=== PATIENT | male | born 1965 | race Caucasian/White ===

== ENCOUNTER 2024-05-23 22:37 | Emergency (ER) | payer OTHER ==
--- OUTSIDE RECORDS SUMMARY | 2024-05-23 22:40 | XMS REPORT | Clinical Summary ---
Author Name Unknown Organization [facility] Address [address] [place] [id number] Care Team Providers Care Grid Operator Name Role Phone Unavailable Primary Care Provider Unavailabl e Immunizations Name Administration Dates Next Due Lillie SARS-CoV-2 Vaccination 11/09/2020 Social History Tobacco Use Types Packs/Day Years Used Date Smoking Tobacco: Never Assessed Sex and Gender Information Value Date Recorded Sex Assigned at Not on file Gender Identity Not on file Sexual Orientation Not on file Plan of Treatment Not on file
[2024-05-23] MEDS ORDERED: ALBUTEROL 2.5 MG/3 ML NEB SOL ONE (23:14)
[2024-05-23] MEDS ORDERED: IPRATROPIUM BROM 0.5MG/2.5ML ONE (23:15)
[2024-05-23 23:25] LABS: Absolute Basophils 0.1 K/uL (0-0.5); Absolute Lymphocytes (CBC) 1.2 K/uL (0.7-4.9); Absolute Monocytes 0.9 K/uL (0.1-1.3); Absolute Neutrophil 9.3 K/uL (1.8-8.0); Eosinophils % 0.4 % (0-4.4); Hematocrit 45.7 % (39.6-49.0); Hemoglobin 14.5 g/dL (13.6-17.9); Lymphocytes % 10.6 % (15.3-44.8); MCH 24.5 pg (27.0-35.0); MCHC 31.7 g/dL (32.0-36.0); MCV 77.2 fL (80-100); MPV 9.4 fL (7.6-11.3); Monocytes % 7.7 % (3.3-12.3); Neutrophils % 80.3 % (41.7-73.7); Nucleated Red Blood Cells % 0.2 % (0-0); Platelets 171 thou/uL (152-406); RBC Red Blood Cell Count 5.92 M/uL (4.33-5.43)
[2024-05-23 23:33] LABS: PT Prothrombin Time 14.1 SECONDS (9.4-12.5); Protime INR 1.27
[2024-05-23 23:47] LABS: ALT/SGPT 109 U/L (16-61); AST/SGOT 65 U/L (15-37); Albumin 3.2 g/dL (3.4-5.0); Albumin/Globulin Ratio 0.8 (1.1-1.8); Alkaline Phosphatase 64 U/L (45-117); Anion Gap 9.4 mEq/L (5.0-15.0); BUN Blood Urea Nitrogen 16 mg/dL (7-18); Bicarbonate 26 mEq/L (21-32); Bilirubin Total 0.3 mg/dL (0.2-1.0); Globulin 4.2 g/dL (2.3-3.5); Glomerular Filtration Rate 68 ml/min (=/>90); Glucose Level 136 mg/dL (74-106); Magnesium 1.8 mg/dL (1.6-2.4); NT PRO-BNP 1053 pg/mL (<125); Potassium 4.4 mEq/L (3.5-5.1); Protein, Total 7.4 g/dL (6.4-8.2); Sodium Level 137 mEq/L (136-145); Troponin High Sensitivity 43.2 pg/mL (<58.9)
[2024-05-24 00:03] LABS: Bilirubin Direct < 0.2 mg/dL (0-0.2); Bilirubin Indirect, Calculated 0.1 mg/dL (0.2-0.8)
[2024-05-24 00:09] LABS: SARS-CoV-2 Antigen CONTROL BLUE LINE VIS/BG OK; SARS-CoV-2 Antigen Rapid Res Negative (Negative)
[2024-05-24] MEDS ORDERED: ENOXAPARIN 100 MG/ML SYR SQ ONE (00:24)
--- NOTE | 2024-05-24 00:24 | ER ---
Nurse's Notes [facility] Name: Julian Sutherland Age: 58 yrs Sex: Male : 1965 Arrival Date: 05/23/2024 Time: 22:37 Bed 2 Private MD: Diagnosis: Atrial flutter, bronchitis, AGAINST MEDICAL ADVICE Presentation: 05/23 22:55 Chief complaint: Patient states: seen by PCP 5 days ago. diagnosed with bronchitis. lg3 began multiple medications but symptoms worsening. Coronavirus screen: At this time, unable to obtain information related to travel outside the [place] Client presents with at least one sign or symptom that may indicate coronavirus-19. Standard/surgical mask placed on the client. Ebola Screen: No symptoms or risks identified at this time. Initial Sepsis Screen: Does the patient meet any 2 criteria? No. Patient's initial sepsis screen is negative. Does the patient have a suspected source of infection? No. Patient's initial sepsis screen is negative. Risk Assessment: Do you want to hurt yourself or someone else? Patient reports no desire to harm self or others. Onset of symptoms is unknown. 22:55 Method Of Arrival: Ambulatory lg3 22:55 Acuity: ANA LAURA 3 lg3 Triage Assessment: 22:58 General: Appears in no apparent distress. uncomfortable, Behavior is calm, cooperative. lg3 Pain: Complains of pain in right flank and chest. EENT: No deficits noted. No signs and/or symptoms were reported regarding the EENT system. Neuro: No deficits noted. Tan Agitation-Sedation Scale (RASS): 0 - Alert and Calm Level of Consciousness is awake, alert, obeys commands, Oriented to person, place, time, situation. Cardiovascular: No deficits noted. Reports chest pain, shortness of breath, Capillary refill < 3 seconds Clubbing of nail beds is absent JVD is absent Patient's skin is warm and dry. Respiratory: Reports shortness of breath cough that is labored breathing pain with cough Airway is patent Respiratory effort is even, unlabored, Respiratory pattern is regular, symmetrical, Onset: The symptoms/episode began/occurred 5 days ago, the patient has moderate shortness of breath. GI: No deficits noted. No signs and/or symptoms were reported involving the gastrointestinal system. : No deficits noted. No signs and/or symptoms were reported regarding the genitourinary system. Derm: No deficits noted. No signs and/or symptoms reported regarding the dermatologic system. Skin is intact, is healthy with good turgor, Skin is dry, Skin is normal, Skin temperature is warm. Musculoskeletal: No deficits noted. No signs and/or symptoms reported regarding the musculoskeletal system. Circulation, motion, and sensation intact. Range of motion: intact in all extremities. Historical: - Allergies: 22:58 No Known Allergies; lg3 - Home Meds: 22:58 aspirin 81 mg Oral capsule [Active]; atorvastatin 80 mg oral tablet daily [Active]; lg3 prednisolone 5 mg Oral tablet 2 tabs daily [Active]; azithromycin 250 mg oral tablet 1 dose pk [Active]; benzonatate 100 mg oral capsule 1 cap 3 times per day [Active]; Albuterol Inhl [Active]; - PMHx: 22:58 high cholesterol; lg3 - PSHx: 22:58 cardiac bipass; lg3 - Immunization history:: Adult Immunizations up to date. - Infectious Disease History:: Denies. - Social history:: Smoking status: Patient reports the use of cigarette tobacco products, smokes one-half pack cigarettes per day, Patient/guardian denies using alcohol, street drugs. Screenin:20 [facility] ED Fall Risk Assessment (Adult) History of falling in the last 3 months, kj2 including since admission No falls in past 3 months (0 pts) Confusion or Disorientation No (0 pts) Intoxicated or Sedated No (0 pts) Impaired Gait No (0 pts) Mobility Assist Device Used No (0 pt) Altered Elimination No (0 pt) Score/Fall Risk Level 0 - 2 = Low Risk Maintained a safe environment, Educated pt \T\ family on fall prevention, incl call for assistance when getting out of bed, Hourly rounding (assess needs \T\ fall precautionary measures) done. Abuse screen: Denies threats or abuse. Denies injuries from another. Nutritional screening: No deficits noted. Tuberculosis screening: No symptoms or risk factors identified. Assessment: 23:20 General: Appears in no apparent distress. uncomfortable. Neuro: Level of Consciousness kj2 is awake, alert, obeys commands, Oriented to person, place, time, situation. Cardiovascular: Patient's skin is warm and dry. Respiratory: Airway is patent Respiratory effort is unlabored, Breath sounds with rhonchi bilaterally. in upper lobes. GI: No signs and/or symptoms were reported involving the gastrointestinal system. : No signs and/or symptoms were reported regarding the genitourinary system. 05/24 00:18 Reassessment: Patient educated on the need for admit, patient refused and declined [facility] transfer/admission as advised by MD. MD reinforced the importance of admission, patient continued to refuse. 00:20 Reassessment: Patient appears in no apparent distress at this time. Patient and/or kj2 family updated on plan of care and expected duration. Pain level reassessed. Patient is alert, oriented x 3, equal unlabored respirations, skin warm/dry/pink. 00:26 Cardiovascular: Rhythm is irregular. 2 Vital Signs: 05/23 22:55 BP 136 / 94; Pulse 48; Resp 19 S; Temp 97.5(TE); Pulse Ox 98% on R/A; Weight 108.86 kg lg3 (R); Height 6 ft. 0 in. (R); 23:20 BP 128 / 105; Pulse 112; Resp 20; Pulse Ox 100% ; kj2 05/24 00:20 BP 150 / 86; Pulse 73; Resp 18; Temp 98.2; Pulse Ox 100% on R/A; kj2 05/23 22:55 Body Mass Index 32.55 (108.86 kg, 182.88 cm) lg3 ED Course: 05/23 22:43 Patient arrived in ED. gm2 22:45 Bette Purdy MD is Attending Physician. sp3 22:58 Triage completed. lg3 22:58 Arm band placed on right wrist. lg3 23:14 Sara Mitchell, RN is Primary Nurse. kj2 23:14 Basic Metabolic Panel Sent. vk 23:14 CBC with Diff Sent. vk 23:14 LFT's Sent. vk 23:14 Magnesium Sent. vk 23:14 NT PRO-BNP Sent. vk 23:14 PT-INR Sent. vk 23:14 Troponin HS Sent. vk 23:14 Initial lab(s) drawn, by me, sent to lab. EKG done, by ED staff, COVID swab sent to vk lab. Flu and/or RSV swab sent to lab. Strep swab sent to lab. Inserted saline lock: 22 gauge in left antecubital area, using aseptic technique. Blood collected. Flushed with 10 mL NS. 23:29 XRAY Chest (1 view) In Process Unspecified. EDMS 23:49 Patient has correct armband on for positive identification. Bed in low position. Call kj2 light in reach. Provided Education on: call light. 23:50 No provider procedures requiring assistance completed. kj2 05/24 00:39 IV discontinued, intact, bleeding controlled, No redness/swelling at site. Pressure kj2 dressing applied. Administered Medications: 05/23 23:24 Drug: DuoNeb Nebulize (3:1) (2.5 mg - 0.5 mg) 3 ml Nebulizer once Route: Nebulizer; kj2 05/24 00:25 Follow up: Response: No adverse reaction kj2 00:39 Drug: Enoxaparin Sub-Q 100 mg Sub-Q once Route: Sub-Q; Site: abdomen; kj2 00:39 Follow up: Response: No adverse reaction; Medication administered at discharge. kj2 Medication: 05/23 23:49 VIS not applicable for this client. kj2 Outcome: 05/24 00:23 Discharge ordered by . sp3 00:38 Discharged to home ambulatory, kj2 00:38 Condition: stable 00:38 Discharge instructions given to patient, Instructed on discharge instructions, follow up and referral plans. the need for admit, the need for transfer, medication usage, Demonstrated understanding of instructions, follow-up care, medications, 00:40 Patient left the ED. kj2 Signatures: Dispatcher [employer] EDMS Ruma Clarke RN RN lg3 Bette Purdy MD MD sp3 Adele Weber 2 Christine Mane Krystal, RN RN kj2 Corrections: (The following items were deleted from the chart) 05/23 23:05 22:58 PMHx: None; lg3 lg3
--- NOTE | 2024-05-24 00:24 | EDPHYS ---
Physician Documentation [facility] Name: Julian Sutherland Age: 58 yrs Sex: Male : 1965 Arrival Date: 05/23/2024 Time: 22:37 Bed 2 Private MD: ED Physician Bette Purdy HPI: 05/23 23:06 This 58 yrs old Male presents to ER via Ambulatory with complaints of Cough, Chest sp3 Congestion, Breathing Difficulty. 23:06 58-year-old male with history of hyperlipidemia, coronary artery disease status post sp3 CABG approximately 2 years ago that presents with chief complaint cough, congestion and shortness of breath. Patient was seen at his PCP office Dr. Hoyt who put him on steroids, Tessalon Perles, and oral antibiotics after negative COVID swab in the office. Patient states that the symptoms of continued to get worse and he presents here for further evaluation. He denies any chest pain but does endorse shortness of breath. He also denies fever, headache, neck pain, abdominal pain, nausea, vomiting, diarrhea, syncope, near syncope, focal neurological deficit, known sick contacts, travel history, prolonged immobilization, prior DVT or PE, or any other signs or symptoms on ROS at this time.. Historical: - Allergies: 22:58 No Known Allergies; lg3 - Home Meds: 22:58 aspirin 81 mg Oral capsule [Active]; atorvastatin 80 mg oral tablet daily [Active]; lg3 prednisolone 5 mg Oral tablet 2 tabs daily [Active]; azithromycin 250 mg oral tablet 1 dose pk [Active]; benzonatate 100 mg oral capsule 1 cap 3 times per day [Active]; Albuterol Inhl [Active]; - PMHx: 22:58 high cholesterol; lg3 - PSHx: 22:58 cardiac bipass; lg3 - Immunization history:: Adult Immunizations up to date. - Infectious Disease History:: Denies. - Social history:: Smoking status: Patient reports the use of cigarette tobacco products, smokes one-half pack cigarettes per day, Patient/guardian denies using alcohol, street drugs. ROS: 23:07 Constitutional: Negative for fever, chills, and weight loss, Eyes: Negative for injury, sp3 pain, redness, and discharge, ENT: Negative for injury, pain, and discharge, Neck: Negative for injury, pain, and swelling, Abdomen/GI: Negative for abdominal pain, nausea, vomiting, diarrhea, and constipation, Back: Negative for injury and pain, MS/Extremity: Negative for injury and deformity, Skin: Negative for injury, rash, and discoloration, Neuro: Negative for headache, weakness, numbness, tingling, and seizure, Psych: Negative for depression, anxiety, suicide ideation, homicidal ideation, and hallucinations, Allergy/Immunology: Negative for hives, rash, and allergies, Endocrine: Negative for neck swelling, polydipsia, polyuria, polyphagia, and marked weight changes, Hematologic/Lymphatic: Negative for swollen nodes, abnormal bleeding, and unusual bruising, 23:07 All other systems are negative, Exam: 23:08 Constitutional: This is a well developed, well nourished patient who is awake, alert, sp3 and in no acute distress. Head/Face: Normocephalic, atraumatic. Eyes: Pupils equal round and reactive to light, extra-ocular motions intact. Lids and lashes normal. Conjunctiva and sclera are non-icteric and not injected. Cornea within normal limits. Periorbital areas with no swelling, redness, or edema. ENT: Nares patent. No nasal discharge, no septal abnormalities noted. External auditory canals are clear. Oropharynx with no redness, swelling, or masses, exudates, or evidence of obstruction, uvula midline. Mucous membranes moist. Neck: Trachea midline, no thyromegaly or masses palpated, and no cervical lymphadenopathy. Supple, full range of motion without nuchal rigidity, or vertebral point tenderness. No Meningismus. Chest/axilla: Normal chest wall appearance and motion. Nontender with no deformity. No lesions are appreciated. Abdomen/GI: Soft, non-tender, with normal bowel sounds. No distension or tympany. No guarding or rebound. No evidence of tenderness throughout. Back: No spinal tenderness. No costovertebral tenderness. Full range of motion. Skin: Warm, dry with normal turgor. Normal color with no rashes, no lesions, and no evidence of cellulitis. MS/ Extremity: Pulses equal, no cyanosis. Neurovascular intact. Full, normal range of motion. Neuro: Awake and alert, GCS 15, oriented to person, place, time, and situation. Cranial nerves II-XII grossly intact. Motor strength 5/5 in all extremities. Sensory grossly intact. Cerebellar exam normal. Normal gait. Psych: Awake, alert, with orientation to person, place and time. Behavior, mood, and affect are within normal limits. 23:08 Cardiovascular: Initially bradycardic for nurse however on my exam heart rate 106 irregularly irregular., 23:08 ECG was reviewed by the Attending Physician. EKG demonstrates atrial flutter with ventricular capture 106 bpm with normal axis and unreadable ST/T-segment's due to atrial flutter. 23:08 Respiratory: Active cough noted with normal respiratory rate., Vital Signs: 22:55 BP 136 / 94; Pulse 48; Resp 19 S; Temp 97.5(TE); Pulse Ox 98% on R/A; Weight 108.86 kg lg3 (R); Height 6 ft. 0 in. (R); 23:20 BP 128 / 105; Pulse 112; Resp 20; Pulse Ox 100% ; kj2 05/24 00:20 BP 150 / 86; Pulse 73; Resp 18; Temp 98.2; Pulse Ox 100% on R/A; kj2 05/23 22:55 Body Mass Index 32.55 (108.86 kg, 182.88 cm) lg3 MDM: 05/23 22:45 Patient medically screened. cp 23:09 Data reviewed: vital signs, nurses notes, lab test result(s), EKG, radiologic studies. sp3 ED course: 58-year-old male with URI and cough and shortness of breath symptoms for approximately 1 week status post PCP visit and outpatient treatment for URI symptoms. Patient is currently in atrial flutter with a ventricular capture at 106 which is presumed to be new. Patient is not on any AV nishi blocking agents at home. Nor is he on any anticoagulants. He does take aspirin daily. Differential diagnosis includes new onset atrial flutter/fibrillation, CHF, CAD, AMI, pneumonia, bronchitis, other URI, viral illness, among others. Workup will include chest x-ray, EKG, laboratory values and general supportive care with pharmaceuticals as indicated.. 05/24 00:21 ED course: Had extensive conversation with patient regarding his atrial flutter and sp3 irregular heartbeat. Patient states that he has to leave and will leave AGAINST MEDICAL ADVICE due to some personal things he is going on. He understands he is high risk for stroke, GA, ischemic gut, other embolic process. Patient likely has been in this rhythm for greater than 48 hours and is not a candidate for immediate cardioversion. I will anticoagulate with Lovenox 1 dose and patient states he will try and follow-up with his full decator operator. He is requesting copy of his EKG. He understands that this could result in , permanent disability, temporary disability, pain and suffering and significant long-term damage. Nurse was present for conversation. Patient will be sent home AMA at this time. . 05/23 22:52 Order name: Basic Metabolic Panel; Complete Time: 00:10 sp3 05/23 22:52 Order name: CBC with Diff; Complete Time: 00:10 sp3 05/23 22:52 Order name: LFT's; Complete Time: 00:10 sp3 05/23 22:52 Order name: Magnesium; Complete Time: 00:10 sp3 05/23 22:52 Order name: NT PRO-BNP; Complete Time: 00:10 3 05/23 22:52 Order name: PT-INR; Complete Time: 00:10 sp3 05/23 22:52 Order name: Troponin HS; Complete Time: 00:10 sp3 05/23 22:52 Order name: Flu; Complete Time: 00:10 sp3 05/23 22:52 Order name: SARS RAPID; Complete Time: 00:10 sp3 05/23 22:52 Order name: Strep; Complete Time: 00:10 sp3 05/24 00:11 Order name: Throat Culture EDME 05/23 22:52 Order name: XRAY Chest (1 view) 3 05/23 22:52 Order name: Cardiac monitoring; Complete Time: 23:14 sp3 05/23 22:52 Order name: EKG - Nurse/Tech; Complete Time: 23:14 sp3 05/23 22:52 Order name: IV Saline Lock; Complete Time: 23:14 sp3 05/23 22:52 Order name: Labs collected and sent; Complete Time: 23:14 sp3 05/23 22:52 Order name: O2 Per Protocol; Complete Time: 23:14 sp3 05/23 22:52 Order name: O2 Sat Monitoring; Complete Time: 23:14 sp3 Administered Medications: 05/23 23:24 Drug: DuoNeb Nebulize (3:1) (2.5 mg - 0.5 mg) 3 ml Nebulizer once Route: Nebulizer; kj2 05/24 00:25 Follow up: Response: No adverse reaction kj2 00:39 Drug: Enoxaparin Sub-Q 100 mg Sub-Q once Route: Sub-Q; Site: abdomen; kj2 00:39 Follow up: Response: No adverse reaction; Medication administered at discharge. kj2 Disposition Summary: 05/24/24 00:23 Discharge Ordered Notes: Location: Home sp3 Condition: Stable sp3 Diagnosis - Atrial flutter, bronchitis, AGAINST MEDICAL ADVICE sp3 Followup: sp3 - With: Private Physician - When: Upon discharge from the Emergency Department - Reason: Continuance of care Discharge Instructions: - Discharge Summary Sheet sp3 - Acute Bronchitis, Adult sp3 Forms: - Medication Reconciliation Form sp3 - Antibiotic Education sp3 - Prescription Opioid Use sp3 - Patient Portal Instructions sp3 - Leadership Thank You Letter sp3 Prescriptions: - Tessalon Perles 100 mg Oral Capsule - take 1 capsule ORAL route every 8 hours As needed; 15 capsule; Refills: 0, sp3 Product Selection Permitted - levofloxacin 500 mg Oral tablet - take 1 tablet ORAL route once daily for 7 days; 7 tablet; Refills: 0, Product sp3 Selection Permitted Signatures: Dispatcher [employer] EDMS Brett Phelps PA PA cp Able, Lacie, RN RN lg3 Bette Purdy MD MD sp3 Sara Mitchell RN RN kj2 Corrections: (The following items were deleted from the chart) 05/23 22:53 22:53 BASIC METABOLIC PANEL+C.LAB.BRZ ordered. EDMS EDMS 22:53 22:53 CBC+H.LAB.BRZ ordered. EDMS EDMS 22:53 22:53 HEPATIC FUNCTION+C.LAB.BRZ ordered. EDMS EDMS 22:53 22:53 MAGNESIUM+C.LAB.BRZ ordered. EDMS EDMS 22:53 22:53 PROBNP+C.LAB.BRZ ordered. EDMS EDMS 22:53 22:53 PROTIME (+INR)+COAG.LAB.BRZ ordered. EDMS EDMS 22:53 22:53 Troponin High Sensitivity+C.LAB.BRZ ordered. EDMS EDMS 22:53 22:53 Influenza Screen (A \T\ B)+BA.LAB.BRZ ordered. EDMS EDMS 22:53 SARS-COV-2 Antigen Rapid+I.LAB.BRZ ordered. EDMS EDMS 22:53 Group A Streptococcus Rapid Sc+BA.LAB.BRZ ordered. EDMS EDMS : 22:53 Chest Single View+RAD.RAD.BRZ ordered. EDMS EDMS 23:05 22:58 PMHx: None; lg3 lg3
--- NOTE | 2024-05-24 06:13 | RAD REPORT ---
XR CHEST 1 VIEW CLINICAL INDICATION: Cough COMPARISON: None FINDINGS: LUNGS/PLEURAL SPACES: Prominent interstitial lung markings with central distribution could represent vascular congestion, interstitial edema or pneumonitis. No pleural effusion. No pneumothorax. HEART/MEDIASTINUM: Heart is prominent in size. BONES/UPPER ABDOMEN/SOFT TISSUES: No acute findings. Sternotomy wires in place. IMPRESSION: Prominent interstitial lung markings with central distribution could represent vascular congestion, i nterstitial edema or pneumonitis Electronically signed by: Yasmin He MD 05/24/2024 12:00 AM CDT Due to temporary technical issues with the PACS/[employer] reporting system, reports are being juan carlos d by the in-house radiologist without review as a courtesy to ensure prompt reporting the interpreting radiologist is fully responsible for the content of the report. Transcribed Date/Time: 05/24/2024 6:13 AM
--- NOTE | 2024-05-24 12:56 | EKG ---
Test Date: 2024-05-23 Test Time: 23:01:43 Behavioral Health Case Manager: VAHID MEASUREMENT RESULTS: Intervals: Rate: 106 AK: QRSD: 92 QT: 342 QTc: 454 [place]: P: AK: QRS: 98 T: -3 INTERPRETIVE STATEMENTS: Atrial flutter with variable AV block Rightward axis Voltage criteria for left ventricular hypertrophy Cannot rule out Septal infarct, age undetermined Possible Inferior infarct, age undetermined Abnormal ECG No previous ECG available for comparison Electronically Signed On 05-24-24 12:54:12 CDT by Jesus Patel
[2024-05-24 13:27] VITALS: O2SAT 100
[2024-05-24 13:29] VITALS: BP 150/86; TEMP 98.2
== END 2024-05-24 00:40 | disposition home or self-care (01) ==
LOC: ER 22:37
DX: J40 Bronchitis, not specified as acute or chronic (principal); I48.92 Unspecified atrial flutter; E78.5 Hyperlipidemia, unspecified; I25.10 Atherosclerotic heart disease of native coronary artery without angina pectoris; R06.02 Shortness of breath; F17.210 Nicotine dependence, cigarettes, uncomplicated; Z95.1 Presence of aortocoronary bypass graft; Z11.52 Encounter for screening for COVID-19
CPT/HCPCS: 93005; 87070; 85025; 80048; 36415; 83735; 85610; 80076; 87081; 84484; 83880; 87804 ×2; 71045; 96372; 99284; 87811; J1650; J7613; J7644